=== PATIENT | male | born 1950 | race Caucasian/White ===

== ENCOUNTER 2016-12-17 15:16 | Inpatient (IN) | payer OTHER ==
[2016-12-17] VITALS (8 sets, daily range): BP systolic 96–144; BP diastolic 59–99; PULSE 67–78; RESP 15–22; Ht 182.9 cm; Wt 106.7 kg
[~2016-12-17] VITALS: Ht 182.9 cm; Wt 106.7 kg
[2016-12-17] MEDS ORDERED: morphine 4 MG/ML VIAL IV STA (15:27)
[2016-12-17] MEDS ORDERED: ONDANSETRON 4 MG INJ ONE (15:28)
[2016-12-17] MEDS ORDERED: morphine 4 MG/ML VIAL ONE (15:28)
--- NOTE | 2016-12-17 15:30 | ERA ---
ER Documentation Chief Complaint Date/Time DATE: 12/17/16 TIME: 15:30 Chief Complaint bibr 39 co cp with ekg showing stemi in the field 3 nitro 325 asprin given HPI 66-year-old male history of hypertension, hyperlipidemia and coronary artery disease status post PCI in 2007 presents to the ED via rescue ambulance for evaluation of chest pain as a potential STEMI. Patient was in his usual state of health until this morning while taking a shower expense acute onset of severe , sharp and pressure-like, left-sided chest pain which radiated down his left arm. Symptoms accompanied by nausea, vomiting, diaphoresis and shortness. Mild relief from aspirin and nitroglycerin 3 given by paramedics. On arrival continues to complain of severe pain which he quantifies as 7/10. No palpitations. Denies abdominal pain or low back pain. No leg pain or swelling. No relieving or exacerbating factors. Reports pain is similar to prior to his previous PCI. ROS All systems reviewed and are negative except as per history of present illness. Medications Home Meds Active Scripts Magnesium Hydroxide* ([place]' MOM*) 30 Ml Susp, 30 ML PO DAILY Y for CONSTIPATION, #1 BOTTLE Prov:STEFAN GARCIA S. 12/18/16 Famotidine* (Famotidine*) 20 Mg Tablet, 20 MG PO DAILY, #30 TAB 2 Refills Prov:STEFAN GARCIA S. 12/18/16 Aspirin (Aspirin) 81 Mg Chew, 81 MG PO DAILY, #30 TAB 4 Refills Prov:STEFAN GARCIA S. 12/18/16 Nitroglycerin* (Nitrostat*) 0.4 Mg Tab.subl, 1 TAB SL Q5M Y for ANGINA, #14 Prov:STEFAN GARCIA S. 12/18/16 Lisinopril* (Lisinopril*) 5 Mg Tablet, 2.5 MG PO DAILY, #30 TAB 3 Refills Prov:STEFAN GARCIA S. 12/18/16 Carvedilol* (Carvedilol*) 6.25 Mg Tablet, 6.25 MG PO BID, #60 TAB 4 Refills Prov:STEFAN GARCIA S. 12/18/16 Atorvastatin* (Atorvastatin*) 80 Mg Tablet, 80 MG PO DAILY@21, #30 TAB 4 Refills Prov:STEFAN GARCIA. 12/18/16 Clopidogrel Bisulfate (Clopidogrel) 75 Mg Tablet, 75 MG PO DAILY, #30 TAB 8 Refills Prov:STEFAN GARCIA S. 12/18/16 Reported Medications Fenofibrate, Micronized* (Fenofibrate*) 160 Mg Tablet, 160 MG PO DAILY, TAB 12/17/16 Discontinued Reported Medications Metoprolol Tartrate* (Lopressor*) 25 Mg Tab, 25 MG PO DAILY, #60 TAB 12/17/16 Atorvastatin* (Atorvastatin*) 40 Mg Tablet, 40 MG PO DAILY, #30 TAB 12/17/16 Allergies Allergies: Coded Allergies: atenolol (Unverified Allergy, Unknown, 12/17/16) bupropion (Unverified Allergy, Unknown, 12/17/16) gemfibrozil (Unverified Allergy, Unknown, 12/17/16) hydrochlorothiazide (Unverified Allergy, Unknown, 12/17/16) lovastatin (Unverified Allergy, Unknown, 12/17/16) niacin (Unverified Allergy, Unknown, 12/17/16) PMhx/Soc Reviewed in chart. As per HPI. History of Surgery: No Anesthesia Reaction: No Hx Neurological Disorder: No Hx Respiratory Disorders: No Hx Cardiac Disorders: Yes (stents) Hx Psychiatric Problems: No Hx Miscellaneous Medical Probl: No Smoking Status: Unknown if ever smoked FmHx No early coronary artery disease, diabetes or stroke. Physical Exam Vitals Vital Signs Date Time Temp Pulse Resp B/P Pulse Ox O2 Delivery O2 Flow Rate FiO2 12/17/16 17:30 Nasal Cannula 2.0 12/17/16 17:10 96.0 78 15 128/92 99 Nasal Cannula 2.0 12/17/16 17:00 72 12/17/16 16:00 78 18 140/96 99 Nasal Cannula 2.0 12/17/16 15:48 79 18 115/89 99 Nasal Cannula 2.0 12/17/16 15:40 78 18 121/87 99 Nasal Cannula 2.0 12/17/16 15:16 98.7 79 18 122/91 100 12/17/16 15:16 Nasal Cannula 2 Physical Exam Const: Alert, severe distress. Head: Atraumatic Eyes: Normal Conjunctiva ENT: Normal External Ears, Nose and Mouth. Neck: Full range of motion.. No chest wall tenderness. No JVD. Resp: Clear to auscultation bilaterally Cardio: Regular rate and rhythm, no murmurs Abd: Soft, non tender, non distended. Normal bowel sounds. No masses or abnormal pulsations. Skin: No petechiae or rashes. Diaphoretic Back: No midline or flank tenderness Ext: No cyanosis, or edema. Pulses 4+ in all extremities. Neur: Awake and alert. No focal deficit observed. Psych: Cooperative, anxious. Result Diagram: 12/18/1643112/18/162 Results 24 hrs Laboratory Tests Test 12/17/16 15:20 White Blood Count 14.910^3/ul Red Blood Count 5.3210^6/ul Hemoglobin 15.3g/dl Hematocrit 44.6% Mean Corpuscular Volume 83.8fl Mean Corpuscular Hemoglobin 28.8pg Mean Corpuscular Hemoglobin Concent 34.3g/dl Red Cell Distribution Width 13.3% Platelet Count 81479^3/UL Mean Platelet Volume 9.6fl Neutrophils % 67.8% Lymphocytes % 21.3% Monocytes % 9.6% Eosinophils % 0.5% Basophils % 0.2% Nucleated Red Blood Cells % 0.0/100WBC Neutrophils # 10.110^3/ul Lymphocytes # 3.210^3/ul Monocytes # 1.410^3/ul Eosinophils # 0.110^3/ul Basophils # 0.010^3/ul Nucleated Red Blood Cells # 0.010^3/ul Prothrombin Time 12.1Sec Prothrombin Time Ratio 0.9 INR International Normalized Ratio 0.90 Activated Partial Thromboplast Time 26.1Sec Sodium Level 147mmol/L Potassium Level 3.5mmol/L Chloride Level 112mmol/L Carbon Dioxide Level 20mmol/L Anion Gap 19 Blood Urea Nitrogen 19mg/dl Creatinine 1.79mg/dl Glucose Level 115mg/dl Calcium Level 10.6mg/dl Total Bilirubin 0.6mg/dl Direct Bilirubin 0.00mg/dl Indirect Bilirubin 0.6mg/dl Aspartate Amino Transf (AST/SGOT) 22IU/L Alanine Aminotransferase (ALT/SGPT) 44IU/L Alkaline Phosphatase 82IU/L Troponin I < 0.012ng/ml Total Protein 8.0g/dl Albumin 5.0g/dl Globulin 3.00g/dl Albumin/Globulin Ratio 1.66 Current Medications Medications (Trade) Dose Ordered Sig/Berna Route PRN Reason Start Time Stop Time Status Last Admin Dose Admin Morphine Sulfate 4 mg 4 mg ONCE STAT IV 12/17/16 15:27 12/17/16 15:28 DC 12/17/16 15:38 Nitroglycerin/ Dextrose (Nitroglycerin 50 Mg/D5W (Pmx)) 250 ml @ 6 mls/hr ONCE STAT IV 12/17/16 15:36 12/17/16 18:39 DC 12/17/16 15:36 Clopidogrel Bisulfate (plaVIX) 600 mg ONCE STAT PO 12/17/16 15:36 12/17/16 15:38 DC 12/17/16 15:46 Heparin Sodium (Porcine) (Heparin (1000 Units/ml)) 5,000 unit ONCE STAT IV 12/17/16 15:36 12/17/16 15:38 DC 12/17/16 15:45 Fentanyl (Sublimaze) 25 mcg ONCE ONCE IV 12/17/16 16:00 12/17/16 16:01 DC 12/17/16 16:04 Fentanyl (Sublimaze) 100 mcg STK-MED ONCE .ROUTE 12/17/16 16:01 12/17/16 16:02 DC Heparin Sodium (Porcine) (Heparin (1000 Units/ml)) 10,000 unit STK-MED ONCE .ROUTE 12/17/16 16:09 12/17/16 16:10 DC Lidocaine (Xylocaine 1% (Mdv) 20 ml) 20 ml STK-MED ONCE .ROUTE 12/17/16 16:09 12/17/16 16:10 DC Iodixanol 100 ml 100 ml STK-MED ONCE .ROUTE 12/17/16 16:09 12/17/16 16:10 DC Heparin Sodium/ Sodium Chloride (Heparin 1000 Units/NS (A-Line)) 1,500 ml @ ud STK-MED ONCE .ROUTE 12/17/16 16:09 12/17/16 16:10 DC Verapamil HCl (Verapamil) 5 mg STK-MED ONCE .ROUTE 12/17/16 16:09 12/17/16 16:10 DC Nitroglycerin (Nitroglycerin (Intracoronary)) 1,000 mcg STK-MED ONCE .ROUTE 12/17/16 16:09 12/17/16 16:10 DC Fentanyl (Sublimaze) 100 mcg STK-MED ONCE .ROUTE 12/17/16 16:19 12/17/16 16:20 DC Midazolam HCl (Versed) 2 mg STK-MED ONCE .ROUTE 12/17/16 16:19 12/17/16 16:20 DC EKG:#1: Time: 15:18. Sinus rhythm with sinus arrhythmia. Ventricular rate 85. Right bundle branch block. nonspecific ST segment elevation with ST depression in leads V3. Normal TX and QRS. EP interpretation: Abnormal ECG. EKG:#2: Time: 15:24. Sinus rhythm. Ventricular rate 82. Right bundle branch block. ST segment elevations in V2 and V3. No ectopy. Normal TX and QRS. EP interpretation: Abnormal ECG. IMAGING: Chest AP portable cardiac silhouette is normal. Costophrenic angles are clear. Aortic atherosclerosis. No effusions or infiltrates. No pneumothorax. EP interpretation: No acute disease. Procedures/MDM DOCUMENTS REVIEWED: ED nurse, no prior records available. MEDICAL DECISION MAKIN-year-old male history of hypertension, hyperlipidemia and coronary artery disease status post PCI in 2007 presents to the ED via rescue ambulance for evaluation of chest pain as a potential STEMI. Initial troponin was negative. Initial EKG revealed right bundle branch block and second EKG showed dynamic changes consistent with acute ischemia. Severe ongoing pain despite intravenous nitroglycerin requiring multiple dose of opiates. No radiographic evidence of pneumonia, pneumothorax or congestive heart failure. Pulmonary embolism and aortic dissection were considered but unlikely. Heparin and bolus and clopidogrel loading dose given. Patient with ongoing severe chest pain and dynamic EKG changes will require emergent PCI and is transferred to the cardiac catheterization lab. CRITICAL CARE TIME: Due to the high probability of sudden clinically significant cardiovascular, hemodynamic and respiratory deterioration, this patient with acute chest pain secondary to acute coronary syndrome who required emergent PCI, required multiple, frequent reevaluations of vital signs and response to therapy. Additional critical care time was spent in obtaining supplemental history from EMS and , interpretation of relevant clinical data including multiple EKG's, labs and x-ray, consultation with [facility], cardiology, Dr Paniagua and arranging for ongoing care and admission with Dr. Persaud. TOTAL CRITICAL CARE TIME: 35 minutes not including other separately reportable procedures. Counseled patient and family regarding diagnosis, diagnostic results and plan for admission. CALLS/CONSULTS: Time 15:20, Dr. Lozoya, Recommends repeat EKG. At 15: 30 after repeat EKG recommends emergent PCI. CALLS/CONSULTS: Time 15:40, Dr Appiah, [facility], agrees patient is unstable for transfer. Case #[id number]. PATIENT CARE TRANSITIONED: Time: 16:35, Dr. Persaud. Departure Diagnosis: Primary Impression: Chest pain Qualified Code: R07.9 - Chest pain, unspecified type Additional Impressions: STEMI (ST elevation myocardial infarction) Qualified Code: I21.02 - ST elevation myocardial infarction involving left anterior descending (LAD) coronary artery Acute coronary syndrome Hypertension Qualified Code: I10 - Hypertension, unspecified type Condition: Critical CRISTIN TENA MD Dec 17, 2016 15:30
[2016-12-17 15:36] LABS: BASOPHILS % 0.2 % (0.0-2.0); EOSINOPHILS # 0.1 10^3/ul (0.0-0.5); EOSINOPHILS % 0.5 % (0.0-7.0); HEMATOCRIT 44.6 % (42.0-52.0); HEMOGLOBIN 15.3 g/dl (14.0-18.0); LYMPHOCYTES # 3.2 10^3/ul (0.8-2.9); LYMPHOCYTES % 21.3 % (15.0-51.0); MEAN CORPUSCULAR HEMOGLOBIN 28.8 pg (29.0-33.0); MEAN CORPUSCULAR HGB CONC 34.3 g/dl (32.0-37.0); MEAN CORPUSCULAR VOLUME 83.8 fl (82.0-101.0); MEAN PLATELET VOLUME 9.6 fl (7.4-10.4); MONOCYTE # 1.4 10^3/ul (0.3-0.9); MONOCYTES % 9.6 % (0.0-11.0); NEUTROPHIL # 10.1 10^3/ul (1.6-7.5); NEUTROPHILS % 67.8 % (39.0-77.0); PLATELET COUNT 262 10^3/UL (140-415); RED BLOOD COUNT 5.32 10^6/ul (4.70-6.10); RED CELL DISTRIBUTION WIDTH 13.3 % (11.5-14.5); WHITE BLOOD COUNT 14.9 10^3/ul (4.8-10.8)
[2016-12-17] MEDS ORDERED: HEPARIN 1000 UNITS/ML 10 ML INJ IV STA (15:36)
[2016-12-17] MEDS ORDERED: CLOPIDOGREL 300 MG TAB PO STA (15:36)
[2016-12-17] MEDS ORDERED: NITROGLYCERIN 50 MG/D5W (PMX) 250 ML IV STA (15:36)
[2016-12-17] MEDS ORDERED: ATOR40TA68 PO (15:44)
[2016-12-17 15:45] LABS: INR 0.9; PROTIME 12.1 Sec (12.2-14.2); PT RATIO 0.9
[2016-12-17] MEDS ORDERED: FENO160T13 PO (15:45)
[2016-12-17] MEDS ORDERED: METO-448 PO (15:45)
[2016-12-17 15:46] LABS: PARTIAL THROMBOPLASTIN TIME 26.1 Sec (25.0-35.0)
[2016-12-17 15:48] LABS: ALANINE AMINOTRANSFERASE 44 IU/L (13-69); ALBUMIN/GLOBULIN RATIO 1.66; ALKALINE PHOSPHATASE 82 IU/L (42-121); ANION GAP 19 (8-16); ASPARTATE AMINO TRANSFERASE 22 IU/L (15-46); BILIRUBIN,INDIRECT 0.6 mg/dl (0-1.1); BILIRUBIN,TOTAL 0.6 mg/dl (0.2-1.3); BLOOD UREA NITROGEN 19 mg/dl (7-20); CALCIUM 10.6 mg/dl (8.4-10.2); CARBON DIOXIDE 20 mmol/L (21-31); CHLORIDE 112 mmol/L (97-110); CREATININE 1.79 mg/dl (0.61-1.24); GLUCOSE 115 mg/dl (70-220); POTASSIUM 3.5 mmol/L (3.5-5.1); SODIUM 147 mmol/L (135-144)
--- NOTE | 2016-12-17 15:50 | RADRPT ---
PROCEDURE: XR Chest. CLINICAL INDICATION: Chest pain TECHNIQUE: Single frontal view of the chest was obtained. COMPARISON: None FINDINGS: The heart is within normal limits. The thoracic aorta is calcified. There are mild bibasilar atelectatic changes. There is no pleural effusion or pneumothorax. RPTAT: AA IMPRESSION: Mild bibasilar atelectatic changes, left greater than right. Calcified aorta consistent with atherosclerotic disease. .Isiah Sheppard MD, MD Date Time Electronically viewed and signed by .Isiah Sheppard MD, on 12/17/2016 15:49 .S/
[2016-12-17] MEDS ORDERED: FENTAnyl 50 MCG/ML VIAL IV ONE (16:00)
[2016-12-17] MEDS ORDERED: FENTAnyl 50 MCG/ML VIAL ONE ×2 (16:01→16:19)
[2016-12-17] MEDS ORDERED: NITROGLYCERIN (IC) 100 MCG/ML INJ ONE (16:09)
[2016-12-17] MEDS ORDERED: LIDOCAINE 1% (MDV) 20 ML INJ ONE (16:09)
[2016-12-17] MEDS ORDERED: IODIXANOL LOCM 100 ML BTL ONE (16:09)
[2016-12-17] MEDS ORDERED: HEPARIN 1000 UNITS/ML 10 ML INJ ONE (16:09)
[2016-12-17] MEDS ORDERED: VERAPAMIL 5 MG INJ ONE (16:09)
[2016-12-17 16:14] LABS: TROPONIN-I < 0.012 ng/ml (0.00-0.12)
[2016-12-17] MEDS ORDERED: MIDAZOLAM 1 MG/ML 2 ML INJ ONE (16:19)
--- NOTE | 2016-12-17 17:44 | RADRPT ---
PROCEDURE: XR Chest. CLINICAL INDICATION: Chest pain TECHNIQUE: Single frontal view of the chest was obtained COMPARISON: CHEST 12/17/2016 FINDINGS: There is mild enlargement of the cardiac silhouette. The thoracic aorta is calcified. There are mild bibasilar linear atelectatic changes, unchanged. There is no pleural effusion or pneumothorax. RPTAT: AA IMPRESSION: Mild enlargement of the cardiac silhouette compared to the prior study, which may be projectional. F ollow-up is recommended. Calcified aorta consistent with atherosclerotic disease. .Isiah Sheppard MD, MD Date Time Electronically viewed and signed by .Isiah Sheppard MD, on 12/17/2016 17:44 .S/
[2016-12-17] MEDS ORDERED: SOD CHLORIDE 0.9% 1,000 ML IV SCH ×2 (18:00→19:30)
[2016-12-17] MEDS ORDERED: ALBUTEROL/IPRATROPIUM (NEB) 3 ML AMP HHN PRN (19:00)
[2016-12-17] MEDS ORDERED: HYDROCODONE/APAP (5/325) TAB PO PRN (19:00)
[2016-12-17] MEDS ORDERED: morphine 2 MG INJ IV PRN (19:00)
[2016-12-17] MEDS ORDERED: ACETAMINOPHEN 325 MG TAB PO PRN (19:00)
[2016-12-17] MEDS ORDERED: MAGNESIUM HYDROXIDE 30ML CUP PO PRN (19:00)
[2016-12-17] MEDS ORDERED: LORAZEPAM 2 MG INJ IV PRN (19:00)
[2016-12-17] MEDS ORDERED: DOCUSATE SODIUM 100 MG CAP PO PRN (19:00)
[2016-12-17] MEDS ORDERED: hydrALAzine 20 MG INJ IV PRN (19:00)
[2016-12-17] MEDS ORDERED: NACL 0.9% 3 ML SYG IV SCH (19:00)
[2016-12-17] MEDS ORDERED: NITROGLYCERIN (SL) 0.4 MG TAB SL PRN (19:00)
[2016-12-17] MEDS ORDERED: NA PHOSPHATE/BIPHOS 133 ML ENEMA PR PRN (19:00)
[2016-12-17] MEDS ORDERED: ONDANSETRON 4 MG INJ IV PRN (19:00)
--- NOTE | 2016-12-17 19:08 | CONS ---
Date/Time of Note Date/Time of Note DATE: 12/17/16 TIME: 19:02 Assessment/Plan Assessment/Plan Problems: (1) STEMI (ST elevation myocardial infarction) (2) Acute coronary syndrome Status: Acute Additional Assessment/Plan STEMI Acute Stent thrombosis ( Very Late) ICMP ( LVEF 30%.) s/p complex PCI of mid LAD stent thrombosis with 3.5x38mm MAYA synergey. ASA, Plavix Coreg, Lisinonpril Statin Likely stunned myocardium. Dr Buchanan was consulted for CKD ( ASHLEY) Cr 1.7 for hydration help in setting of ICMP LVEF 30% on LV gram 2D echo. If stable pt can be d/c home tomorrow. Consultation Date/Type/Reason Admit Date/Time Dec 17, 2016 at 17:41 Date of Consultation: Dec 17, 2016 Type of Consultation: Interventional Cardiology Reason for Consultation STEMI Hx of Present Illness Pt is 66 year o,d m Cmae in with acute on set of Cp. EKG RBBB with ST T changes , no meeting criteri on fist EKG but second EKG has dynamic changes with on going CP. taken urgent for cath with STEMI. Constitutional: diaphoresis Past Medical History Medical History: coronary artery disease Social History Smoking Status: Current every day smoker Exam/Review of Systems Vital Signs Vitals Vital Signs Date Time Temp Pulse Resp B/P Pulse Ox O2 Delivery O2 Flow Rate FiO2 12/17/16 18:00 68 15 134/86 99 Nasal Cannula 2.0 12/17/16 17:10 96.0 Exam Constitutional: alert, oriented Head: normocephalic Eyes: nl conjunctiva ENMT: nl external ears & nose Neck: non-tender, supple Respiratory: clear to auscultation Cardiovascular: regular rate and rhythm Gastrointestinal: nl liver, spleen, soft Results Result Diagram: 12/17/16 1520 12/17/16 1520 Results 24 hrs Laboratory Tests Test 12/17/16 15:20 White Blood Count 14.9 H Red Blood Count 5.32 Hemoglobin 15.3 Hematocrit 44.6 Mean Corpuscular Volume 83.8 Mean Corpuscular Hemoglobin 28.8 L Mean Corpuscular Hemoglobin Concent 34.3 Red Cell Distribution Width 13.3 Platelet Count 262 Mean Platelet Volume 9.6 Neutrophils % 67.8 Lymphocytes % 21.3 Monocytes % 9.6 Eosinophils % 0.5 Basophils % 0.2 Nucleated Red Blood Cells % 0.0 Neutrophils # 10.1 H Lymphocytes # 3.2 H Monocytes # 1.4 H Eosinophils # 0.1 Basophils # 0.0 Nucleated Red Blood Cells # 0.0 Prothrombin Time 12.1 L Prothrombin Time Ratio 0.9 INR International Normalized Ratio 0.90 Activated Partial Thromboplast Time 26.1 Sodium Level 147 H Potassium Level 3.5 Chloride Level 112 H Carbon Dioxide Level 20 L Anion Gap 19 H Blood Urea Nitrogen 19 Creatinine 1.79 H Glucose Level 115 Calcium Level 10.6 H Total Bilirubin 0.6 Direct Bilirubin 0.00 Indirect Bilirubin 0.6 Aspartate Amino Transf (AST/SGOT) 22 Alanine Aminotransferase (ALT/SGPT) 44 Alkaline Phosphatase 82 Troponin I < 0.012 Total Protein 8.0 Albumin 5.0 H Globulin 3.00 Albumin/Globulin Ratio 1.66 Medications Medications Current Medications Sodium Chloride (NS) 1,000 ml @ 75 mls/hr [id number] IV Last administered on t 18:01; Admin Dose 75 MLS/HR; Start 12/17/16 at 18:00; Stop 12/18/16 at 06:00 Ondansetron HCl (Zofran Inj) 4 mg Q6H PRN IV NAUSEA AND/OR VOMITING; Start at 19:00 Acetaminophen (Tylenol Tab) 650 mg Q6H PRN PO PAIN LEVEL 1-3 OR FEVER; Start 12/17/16 at 19:00 Acetaminophen/ Hydrocodone Bitart ([place] (5/325)) 1 tab Q6H PRN PO MODERATE PAIN LEVEL 4-6; Start 12/17/16 at 19:00 Morphine Sulfate (morphine) 2 mg Q4H PRN IV SEVERE PAIN LEVEL 7-10; Start at 19:00 Docusate Sodium (Colace) 100 mg Q12H PRN PO CONSTIPATION; Start 12/17/16 at 19 :00 Magnesium Hydroxide (Milk Of Mag) 30 ml DAILY PRN PO CONSTIPATION; Start 12/17 at 19:00 Sodium Biphosphate/ Sodium Phosphate (Fleet Enema) 133 ml DAILY PRN [place] CONSTIPATION; Start 12/17/16 at 19:00 Famotidine (Pepcid) 20 mg DAILY PO ; Start 12/17/16 at 19:00 Lorazepam (Ativan) 0.5 mg Q6H PRN IV ANXIETY; Start 12/17/16 at 19:00 Hydralazine HCl (Apresoline) 10 mg Q6H PRN IV SBP GREATER THAN 180; Start at 19:00 Nitroglycerin (Nitroglycerin (Sl Tab) 0.4 Mg) 1 tab Q5M PRN SL ANGINA; Start 12/17/16 at 19:00 ABI MORGAN MD Dec 17, 2016 19:08
[2016-12-17] MEDS: FAMOTIDINE 20 MG TAB PO SCH (20:08)
[2016-12-17] MEDS: LISINOPRIL 5 MG TAB PO SCH (20:08)
--- NOTE | 2016-12-17 20:41 | HP ---
DATE OF ADMISSION: 12/17/2016 CHIEF COMPLAINT: Chest pain. HISTORY OF PRESENT ILLNESS: A 66-year-old male with prior history of VA with stent placement in 2007, coronary artery disease, high cholesterol, hypertension, who presented with chest pain. Symptoms began early this morning when he was taking a shower. He felt some substernal chest pain, pressure like, left- sided chest pain radiating down his left arm. He had some nausea symptoms as well, some sweating, some shortness of breath, and coughing, nonproductive. He took nitroglycerin at home, which did not relieve the symptoms. He told his to call 911. He received, he says, 4 aspirin as well and nitroglycerin, which did not relieve his symptoms. On arrival, he was still having severe chest pain, but denies any diarrhea or constipation. No headaches or loss of consciousness. No vision changes. No abdominal pain. No arthralgias or myalgias. When he arrived, he was found with ST-elevation VA and was taken to the slab tripper where he had findings based on what nursing staff said of LAD occlusion and had angioplasty and stent replacement. PAST MEDICAL HISTORY: As above. ALLERGIES: ATENOLOL, BUPROPION, GEMFIBROZIL, HYDROCHLOROTHIAZIDE, LOVASTATIN, AND NIACIN. HOME MEDICATIONS: Atorvastatin 40 mg daily, Fenofibrate 160 mg daily, Lopressor 25 mg daily. PAST SURGICAL HISTORY: He had an appendectomy in the past. SOCIAL HISTORY: He smokes half pack of cigarettes a day and has for many years apparently. FAMILY HISTORY: His mother has hypertension and diabetes. PHYSICAL EXAMINATION: VITAL SIGNS: T-max 98.7, pulse of 79, respirations 18, blood pressure 115 to 140 systolic over 89 to 96 diastolic, sating at 99 percent 2 L nasal cannula. GENERAL: Patient lying in bed, answers question appropriately, in no acute distress. HEENT: Pupils equal, round, and react to light. Extraocular muscles intact. NECK: Supple. No thyromegaly. LUNGS: Clear to auscultation bilaterally. CARDIOVASCULAR: S1, S2 heard. No rubs or gallops. ABDOMEN: Soft, nontender, nondistended. Normal bowel sounds. No rebound or guarding. MUSCULOSKELETAL: No lower extremity edema bilaterally. NEUROLOGIC: No focal deficits. LABORATORY: WBC 14.9, hemoglobin 15.3, hematocrit 44.6, platelets 262. Sodium 147, potassium 3.5, chloride 112, CO2 20, BUN 19, creatinine 1.79, glucose of 115. LFTs are normal. Troponin is actually negative times 1. ASSESSMENT AND PLAN: A 66-year-old male coming in with chest pain, with findings of ST-elevation myocardial infarction, status post left heart catheterization with left anterior descending stenosis. Left anterior descending blockage found, status post angioplasty and PCI. 1. ST-elevation myocardial infarction and chest pain. Will admit patient to ICU. Follow up cardiology recommendations. Continue to monitor post catheterization including sheath and continue current medications including H2 dinora, nitroglycerin p.r.n. The patient received Plavix earlier. 2. History of hypertension. Again, continue hydralazine p.r.n. and Monitor blood pressure very carefully. 3. High cholesterol. Follow up lipid panel. The patient has had allergies to statin, gemfibrozil, and niacin, so continue to monitor for now. 4. History of prior myocardial infarction. See number 1. 5. Gastrointestinal prophylaxis. H2 dinora. 6. Deep vein thrombosis prophylaxis. Again, patient received Plavix and received aspirin. Dictated By: Charbel Pimentel MD /kirsten/bjc /Document#: [id number]
[2016-12-17] MEDS ORDERED: HEPARIN 5,000 UNIT/0.5 ML VIAL SC SCH (21:00)
[2016-12-17] MEDS ORDERED: ATORVASTATIN 80 MG TAB PO SCH (21:00)
[2016-12-17 22:10] LABS: CK-MB 48.1 ng/ml (0.0-2.4)
[2016-12-17 22:12] LABS: TROPONIN-I 14.8 ng/ml (0.00-0.12)
[2016-12-18] VITALS (19 sets, daily range): BP systolic 93–135; BP diastolic 56–98; PULSE 61–78; RESP 12–23
[2016-12-18 04:45] LABS: BASOPHILS % 0.1 % (0.0-2.0); EOSINOPHILS % 0.2 % (0.0-7.0); HEMATOCRIT 38.6 % (42.0-52.0); HEMOGLOBIN 12.6 g/dl (14.0-18.0); LYMPHOCYTES # 1.5 10^3/ul (0.8-2.9); LYMPHOCYTES % 10.3 % (15.0-51.0); MEAN CORPUSCULAR HEMOGLOBIN 28.2 pg (29.0-33.0); MEAN CORPUSCULAR HGB CONC 32.6 g/dl (32.0-37.0); MEAN CORPUSCULAR VOLUME 86.4 fl (82.0-101.0); MEAN PLATELET VOLUME 9.9 fl (7.4-10.4); MONOCYTE # 1.4 10^3/ul (0.3-0.9); MONOCYTES % 9.7 % (0.0-11.0); NEUTROPHIL # 11.3 10^3/ul (1.6-7.5); NEUTROPHILS % 79.2 % (39.0-77.0); PLATELET COUNT 200 10^3/UL (140-415); RED BLOOD COUNT 4.47 10^6/ul (4.70-6.10); RED CELL DISTRIBUTION WIDTH 13.7 % (11.5-14.5); WHITE BLOOD COUNT 14.3 10^3/ul (4.8-10.8)
[2016-12-18 05:13] LABS: PHOSPHORUS 4.2 mg/dl (2.5-4.9)
[2016-12-18 05:17] LABS: CALCIUM 9.4 mg/dl (8.4-10.2); CREATININE 1.02 mg/dl (0.61-1.24); MAGNESIUM 1.6 mg/dl (1.7-2.5); POTASSIUM 4.4 mmol/L (3.5-5.1)
[2016-12-18 07:44] LABS: THYROID STIMULATING HORMONE 0.68 MIU/L (0.465-4.680)
[2016-12-18] MEDS: FAMOTIDINE 20 MG TAB PO SCH (08:16)
[2016-12-18] MEDS: LISINOPRIL 5 MG TAB PO SCH (08:17)
--- NOTE | 2016-12-18 08:24 | PN ---
Date/Time of Note Date/Time of Note DATE: 12/18/16 TIME: 08:21 Assessment/Plan VTE Prophylaxis VTE Prophylaxis Intervention: SCD's Lines/Catheters IV [facility]ter [facility] (from [facility] Peripheral IV Urinary Cath still in place: No Assessment/Plan Chief Complaint/Hosp Course ASSESSMENT AND PLAN: 66-year-old male coming in with chest pain, with findings of ST-elevation myocardial infarction, status post left heart catheterization with left anterior descending stenosis. Left anterior descending blockage found, status post angioplasty and PCI. 1. ST-elevation myocardial infarction and chest pain. -Follow up cardiology recommendations. - continue current medications including H2 dinora, beta-dinora, Plavix, nitroglycerin p.r.n. 2. History of hypertension. Again, continue hydralazine p.r.n. and other current cardiac meds, and Monitor blood pressure very carefully. 3. High cholesterol. Follow up lipid panel. The patient has had allergies to statin, gemfibrozil, and niacin, so continue to monitor for now, presently on atorvastatin 4. History of prior myocardial infarction. See number 1. 5. Gastrointestinal prophylaxis. H2 dinora. 6. Deep vein thrombosis prophylaxis. Again, patient received Plavix and received aspirin. Critical care time spent on patient care today equals 45 minutes. Problems: Subjective 24 Hr Interval Summary Free Text/Dictation Patient has some chest pain yesterday, relieved with nitro and morphine, no present chest pain otherwise no acute events overnight. Tolerating diet. Exam/Review of Systems Vital Signs Vitals Vital Signs Date Time Temp Pulse Resp B/P Pulse Ox O2 Delivery O2 Flow Rate FiO2 12/18/16 08:00 98.1 65 19 120/81 93 Nasal Cannula 2.0 Intake and Output 12/17/16 12/17/16 12/18/16 15:00 23:00 07:00 Intake Total 935 ml 525 ml Output Total 355 ml 325 ml Balance 580 ml 200 ml Exam GENERAL: Patient lying in bed, answers question appropriately, in no acute distress. HEENT: Pupils equal, round, and react to light. Extraocular muscles intact. NECK: Supple. No thyromegaly. LUNGS: Clear to auscultation bilaterally. CARDIOVASCULAR: S1, S2 heard. No rubs or gallops. ABDOMEN: Soft, nontender, nondistended. Normal bowel sounds. No rebound or guarding. MUSCULOSKELETAL: No lower extremity edema bilaterally. NEUROLOGIC: No focal deficits. Results Result Diagram: 12/18/16 0432 12/18/16 0432 Results 24 hrs Laboratory Tests Test 12/17/16 15:20 12/17/16 21:00 12/18/16 04:32 White Blood Count 14.9 H 14.3 H Red Blood Count 5.32 4.47 L Hemoglobin 15.3 12.6 L Hematocrit 44.6 38.6 L Mean Corpuscular Volume 83.8 86.4 Mean Corpuscular Hemoglobin 28.8 L 28.2 L Mean Corpuscular Hemoglobin Concent 34.3 32.6 Red Cell Distribution Width 13.3 13.7 Platelet Count 262 200 # Mean Platelet Volume 9.6 9.9 Neutrophils % 67.8 79.2 H Lymphocytes % 21.3 10.3 L Monocytes % 9.6 9.7 Eosinophils % 0.5 0.2 Basophils % 0.2 0.1 Nucleated Red Blood Cells % 0.0 0.0 Neutrophils # 10.1 H 11.3 H Lymphocytes # 3.2 H 1.5 Monocytes # 1.4 H 1.4 H Eosinophils # 0.1 0.0 Basophils # 0.0 0.0 Nucleated Red Blood Cells # 0.0 0.0 Prothrombin Time 12.1 L Prothrombin Time Ratio 0.9 INR International Normalized Ratio 0.90 Activated Partial Thromboplast Time 26.1 Sodium Level 147 H 142 Potassium Level 3.5 4.4 Chloride Level 112 H 111 H Carbon Dioxide Level 20 L 22 Anion Gap 19 H 13 Blood Urea Nitrogen 19 19 Creatinine 1.79 H 1.02 Glucose Level 115 104 Calcium Level 10.6 H 9.4 Total Bilirubin 0.6 Direct Bilirubin 0.00 Indirect Bilirubin 0.6 Aspartate Amino Transf (AST/SGOT) 22 Alanine Aminotransferase (ALT/SGPT) 44 Alkaline Phosphatase 82 Troponin I < 0.012 14.800 *H Total Protein 8.0 Albumin 5.0 H Globulin 3.00 Albumin/Globulin Ratio 1.66 Creatine Kinase 757 H Creatine Kinase Index 6.4 Creatinine Kinase MB (Mass) 48.10 H Free Thyroxine 0.91 Hemoglobin A1c 5.4 Phosphorus Level 4.2 Magnesium Level 1.6 L Triglycerides Level 223 H Cholesterol Level 131 LDL Cholesterol, Calculated 60 HDL Cholesterol 26 L Cholesterol/HDL Ratio 5.0 Thyroid Stimulating Hormone (TSH) 0.680 Medications Medications Current Medications Ondansetron HCl (Zofran Inj) 4 mg Q6H PRN IV NAUSEA AND/OR VOMITING Last administered on 12/17/16 21:41; Admin Dose 4 MG; Start 12/17/16 at 19:00 Acetaminophen (Tylenol Tab) 650 mg Q6H PRN PO PAIN LEVEL 1-3 OR FEVER; Start 12/17/16 at 19:00 Acetaminophen/ Hydrocodone Bitart ([place] (5/325)) 1 tab Q6H PRN PO MODERATE PAIN LEVEL 4-6 Last administered on 12/17/16 20:27; Admin Dose 1 TAB; Start 12/17/16 at 19:00 Morphine Sulfate (morphine) 2 mg Q4H PRN IV SEVERE PAIN LEVEL 7-10 Last administered on 12/17/16 21:42; Admin Dose 2 MG; Start 12/17/16 at 19:00 Docusate Sodium (Colace) 100 mg Q12H PRN PO CONSTIPATION; Start 12/17/16 at 19 :00 Magnesium Hydroxide (Milk Of Mag) 30 ml DAILY PRN PO CONSTIPATION; Start 12/17 at 19:00 Sodium Biphosphate/ Sodium Phosphate (Fleet Enema) 133 ml DAILY PRN [place] CONSTIPATION; Start 12/17/16 at 19:00 Famotidine (Pepcid) 20 mg DAILY PO Last administered on 12/18/16 08:16; Admin Dose 20 MG; Start 12/17/16 at 19:00 Lorazepam (Ativan) 0.5 mg Q6H PRN IV ANXIETY; Start 12/17/16 at 19:00 Hydralazine HCl (Apresoline) 10 mg Q6H PRN IV SBP GREATER THAN 180; Start at 19:00 Nitroglycerin (Nitroglycerin (Sl Tab) 0.4 Mg) 1 tab Q5M PRN SL ANGINA Last administered on 12/17/16 21:30; Admin Dose 1 TAB; Start 12/17/16 at 19:00 Clopidogrel Bisulfate (plaVIX) 75 mg DAILY PO Last administered on 12/18/16 08:16; Admin Dose 75 MG; Start 12/18/16 at 09:00 Aspirin (Aspirin) 81 mg DAILY PO Last administered on 12/18/16 08:16; Admin Dose 81 MG; Start 12/18/16 at 09:00 Atorvastatin Calcium (Lipitor) 80 mg DAILY@21 PO Last administered on 20:08; Admin Dose 80 MG; Start 12/17/16 at 21:00 Carvedilol (Coreg) 6.25 mg BID PO Last administered on 12/18/16 08:16; Admin Dose 6.25 MG; Start 12/17/16 at 21:00 Lisinopril (Zestril) 2.5 mg DAILY PO Last administered on 12/18/16 08:17; Admin Dose 2.5 MG; Start 12/17/16 at 19:45 STEFAN GARCIA Dec 18, 2016 08:24
[2016-12-18] MEDS ORDERED: MAGNESIUM SULFATE 1 GM/D5W 100 ML IVPB ONE (08:30)
[2016-12-18] MEDS ORDERED: CLOPIDOGREL 75 MG TAB PO SCH (09:00)
[2016-12-18] MEDS ORDERED: ASPIRIN 81 MG TAB PO SCH (09:00)
--- NOTE | 2016-12-18 09:31 | CONS ---
Date/Time of Note Date/Time of Note DATE: 12/18/16 TIME: 09:30 Consult Date/Type/Reason Admit Date/Time Dec 17, 2016 at 17:41 Initial Consult Date 12/17/16 Type of Consultation: Interventional Cardiology Objective Vital Signs Date Time Temp Pulse Resp B/P Pulse Ox O2 Delivery O2 Flow Rate FiO2 12/18/16 09:05 18 110/74 96 Room Air 12/18/16 08:00 2.0 12/18/16 08:00 98.1 65 Intake and Output 12/17/16 12/17/16 12/18/16 15:00 23:00 07:00 Intake Total 935 ml 525 ml Output Total 355 ml 325 ml Balance 580 ml 200 ml Results/Medications Result Diagram: 12/18/16 0432 12/18/16 0432 Results 24 hrs Laboratory Tests Test 12/17/16 15:20 12/17/16 21:00 12/18/16 04:32 White Blood Count 14.9 H 14.3 H Red Blood Count 5.32 4.47 L Hemoglobin 15.3 12.6 L Hematocrit 44.6 38.6 L Mean Corpuscular Volume 83.8 86.4 Mean Corpuscular Hemoglobin 28.8 L 28.2 L Mean Corpuscular Hemoglobin Concent 34.3 32.6 Red Cell Distribution Width 13.3 13.7 Platelet Count 262 200 # Mean Platelet Volume 9.6 9.9 Neutrophils % 67.8 79.2 H Lymphocytes % 21.3 10.3 L Monocytes % 9.6 9.7 Eosinophils % 0.5 0.2 Basophils % 0.2 0.1 Nucleated Red Blood Cells % 0.0 0.0 Neutrophils # 10.1 H 11.3 H Lymphocytes # 3.2 H 1.5 Monocytes # 1.4 H 1.4 H Eosinophils # 0.1 0.0 Basophils # 0.0 0.0 Nucleated Red Blood Cells # 0.0 0.0 Prothrombin Time 12.1 L Prothrombin Time Ratio 0.9 INR International Normalized Ratio 0.90 Activated Partial Thromboplast Time 26.1 Sodium Level 147 H 142 Potassium Level 3.5 4.4 Chloride Level 112 H 111 H Carbon Dioxide Level 20 L 22 Anion Gap 19 H 13 Blood Urea Nitrogen 19 19 Creatinine 1.79 H 1.02 Glucose Level 115 104 Calcium Level 10.6 H 9.4 Total Bilirubin 0.6 Direct Bilirubin 0.00 Indirect Bilirubin 0.6 Aspartate Amino Transf (AST/SGOT) 22 Alanine Aminotransferase (ALT/SGPT) 44 Alkaline Phosphatase 82 Troponin I < 0.012 14.800 *H Total Protein 8.0 Albumin 5.0 H Globulin 3.00 Albumin/Globulin Ratio 1.66 Creatine Kinase 757 H Creatine Kinase Index 6.4 Creatinine Kinase MB (Mass) 48.10 H Free Thyroxine 0.91 Hemoglobin A1c 5.4 Phosphorus Level 4.2 Magnesium Level 1.6 L Triglycerides Level 223 H Cholesterol Level 131 LDL Cholesterol, Calculated 60 HDL Cholesterol 26 L Cholesterol/HDL Ratio 5.0 Thyroid Stimulating Hormone (TSH) 0.680 Medications Current Medications Ondansetron HCl (Zofran Inj) 4 mg Q6H PRN IV NAUSEA AND/OR VOMITING Last administered on 12/17/16 21:41; Admin Dose 4 MG; Start 12/17/16 at 19:00 Acetaminophen (Tylenol Tab) 650 mg Q6H PRN PO PAIN LEVEL 1-3 OR FEVER; Start 12/17/16 at 19:00 Acetaminophen/ Hydrocodone Bitart ([place] (5/325)) 1 tab Q6H PRN PO MODERATE PAIN LEVEL 4-6 Last administered on 12/17/16 20:27; Admin Dose 1 TAB; Start 12/17/16 at 19:00 Morphine Sulfate (morphine) 2 mg Q4H PRN IV SEVERE PAIN LEVEL 7-10 Last administered on 12/17/16 21:42; Admin Dose 2 MG; Start 12/17/16 at 19:00 Docusate Sodium (Colace) 100 mg Q12H PRN PO CONSTIPATION; Start 12/17/16 at 19 :00 Magnesium Hydroxide (Milk Of Mag) 30 ml DAILY PRN PO CONSTIPATION; Start 12/17 at 19:00 Sodium Biphosphate/ Sodium Phosphate (Fleet Enema) 133 ml DAILY PRN [place] CONSTIPATION; Start 12/17/16 at 19:00 Famotidine (Pepcid) 20 mg DAILY PO Last administered on 12/18/16 08:16; Admin Dose 20 MG; Start 12/17/16 at 19:00 Lorazepam (Ativan) 0.5 mg Q6H PRN IV ANXIETY; Start 12/17/16 at 19:00 Hydralazine HCl (Apresoline) 10 mg Q6H PRN IV SBP GREATER THAN 180; Start at 19:00 Nitroglycerin (Nitroglycerin (Sl Tab) 0.4 Mg) 1 tab Q5M PRN SL ANGINA Last administered on 12/17/16 21:30; Admin Dose 1 TAB; Start 12/17/16 at 19:00 Clopidogrel Bisulfate (plaVIX) 75 mg DAILY PO Last administered on 12/18/16 08:16; Admin Dose 75 MG; Start 12/18/16 at 09:00 Aspirin (Aspirin) 81 mg DAILY PO Last administered on 12/18/16 08:16; Admin Dose 81 MG; Start 12/18/16 at 09:00 Atorvastatin Calcium (Lipitor) 80 mg DAILY@21 PO Last administered on 20:08; Admin Dose 80 MG; Start 12/17/16 at 21:00 Carvedilol (Coreg) 6.25 mg BID PO Last administered on 12/18/16 08:16; Admin Dose 6.25 MG; Start 12/17/16 at 21:00 Lisinopril (Zestril) 2.5 mg DAILY PO Last administered on 12/18/16 08:17; Admin Dose 2.5 MG; Start 12/17/16 at 19:45 Assessment/Plan Chief Complaint/Hosp Course Pt is 66 year o,d m Cmae in with acute on set of Cp. EKG RBBB with ST T changes , no meeting criteri on fist EKG but second EKG has dynamic changes with on going CP. taken urgent for cath with STEMI. Problems: (1) Acute coronary syndrome (2) STEMI (ST elevation myocardial infarction) Additional Assessment/Plan Stable post KS Trasnfer out of ICU and d/c home at 6PM in evening Walking, ambulate contineu medical management post KS out pt f/u with [facility] for possible [facility] and ICMP management d/w pt in detail will /fu Cr improved post hydration from 1.7 to 1.0 D/C home today ABI MORGAN MD Dec 18, 2016 09:31
--- NOTE | 2016-12-18 11:00 | CONS ---
Date/Time of Note Date/Time of Note DATE: 12/18/16 TIME: 11:00 Assessment/Plan Assessment/Plan Additional Assessment/Plan 1.acute STEMI 2. acute kidney injury due to Prerenal azotemia + STEMI 3. Mild metaboolic acidosis 4. Hypernatremia due to dehydration/Prerenal azotemia Plan : S/p Cardiac cath with s/p complex PCI of mid LAD stent thrombosis with 3.5x38mm MAYA synergey. Continue iVF NS Pt cr expectinv to improve with IVF hydration BP stable Continue current medicaitons, Ok to resume ACEI/ARB- from renal point of view will follow up Consultation Date/Type/Reason Admit Date/Time Dec 17, 2016 at 17:41 Date of Consultation: Dec 17, 2016 Type of Consultation: NEPHROLOGY Reason for Consultation Acute kidney injury, post contrast exposure from cardiac cath ,Hypernatremia, metabolic acidosis Referring Provider: TRENTON SALGADO MD Hx of Present Illness 66 year o,d m Cmae in with acute on set of Cp. EKG RBBB with ST T changes, no meeting criteri on fist EKG but second EKG has dynamic changes with on going CP. taken urgent for cath with STEMI. He is noted to have hypernatremia, mild metabolic acidosis and Eleevated Cr 1.71. pt is goito have Cardiac cath and contrast exposure, and renal has been consuteld for ASHLEY, Hypernatremia, Metabolic acidosis, and to prevent contrats induced nephropathy. seen in ED on 12/17/2016 Constitutional: diaphoresis Cardiovascular: chest pain Past Medical History Medical History: coronary artery disease, high cholesterol, hypertension Past Surgical History Past Surgical Hx: other (appendectomy ) Family History Significant Family History: no pertinent family hx Social History Alcohol Use: none Smoking Status: Current every day smoker Drug Use: none Exam/Review of Systems Vital Signs Vitals Vital Signs Date Time Temp Pulse Resp B/P Pulse Ox O2 Delivery O2 Flow Rate FiO2 12/18/16 10:00 66 17 103/62 96 Room Air 12/18/16 08:00 2.0 12/18/16 08:00 98.1 Intake and Output 12/17/16 12/17/16 12/18/16 15:00 23:00 07:00 Intake Total 935 ml 525 ml Output Total 355 ml 325 ml Balance 580 ml 200 ml Exam Constitutional: alert Psych: no complaints Head: normocephalic ENMT: nl external ears & nose Neck: non-tender, supple Respiratory: clear to auscultation, diminished breath sounds, normal air movement Cardiovascular: nl pulses, regular rate and rhythm Gastrointestinal: nl liver, spleen, non-tender, soft Musculoskeletal: nl extremities to inspection, nl gait and stance Extremities: normal pulses Neurological: [employer] II-XII intact, nl mental status, nl speech, nl strength Results Result Diagram: 12/18/162 12/18/16 0432 Results 24 hrs Laboratory Tests Test 12/17/16 15:20 12/17/16 21:00 12/18/16 04:32 White Blood Count 14.9 H 14.3 H Red Blood Count 5.32 4.47 L Hemoglobin 15.3 12.6 L Hematocrit 44.6 38.6 L Mean Corpuscular Volume 83.8 86.4 Mean Corpuscular Hemoglobin 28.8 L 28.2 L Mean Corpuscular Hemoglobin Concent 34.3 32.6 Red Cell Distribution Width 13.3 13.7 Platelet Count 262 200 # Mean Platelet Volume 9.6 9.9 Neutrophils % 67.8 79.2 H Lymphocytes % 21.3 10.3 L Monocytes % 9.6 9.7 Eosinophils % 0.5 0.2 Basophils % 0.2 0.1 Nucleated Red Blood Cells % 0.0 0.0 Neutrophils # 10.1 H 11.3 H Lymphocytes # 3.2 H 1.5 Monocytes # 1.4 H 1.4 H Eosinophils # 0.1 0.0 Basophils # 0.0 0.0 Nucleated Red Blood Cells # 0.0 0.0 Prothrombin Time 12.1 L Prothrombin Time Ratio 0.9 INR International Normalized Ratio 0.90 Activated Partial Thromboplast Time 26.1 Sodium Level 147 H 142 Potassium Level 3.5 4.4 Chloride Level 112 H 111 H Carbon Dioxide Level 20 L 22 Anion Gap 19 H 13 Blood Urea Nitrogen 19 19 Creatinine 1.79 H 1.02 Glucose Level 115 104 Calcium Level 10.6 H 9.4 Total Bilirubin 0.6 Direct Bilirubin 0.00 Indirect Bilirubin 0.6 Aspartate Amino Transf (AST/SGOT) 22 Alanine Aminotransferase (ALT/SGPT) 44 Alkaline Phosphatase 82 Troponin I < 0.012 14.800 *H Total Protein 8.0 Albumin 5.0 H Globulin 3.00 Albumin/Globulin Ratio 1.66 Creatine Kinase 757 H Creatine Kinase Index 6.4 Creatinine Kinase MB (Mass) 48.10 H Free Thyroxine 0.91 Hemoglobin A1c 5.4 Phosphorus Level 4.2 Magnesium Level 1.6 L Triglycerides Level 223 H Cholesterol Level 131 LDL Cholesterol, Calculated 60 HDL Cholesterol 26 L Cholesterol/HDL Ratio 5.0 Thyroid Stimulating Hormone (TSH) 0.680 Medications Medications Current Medications Ondansetron HCl (Zofran Inj) 4 mg Q6H PRN IV NAUSEA AND/OR VOMITING Last administered on 12/17/16 21:41; Admin Dose 4 MG; Start 12/17/16 at 19:00 Acetaminophen (Tylenol Tab) 650 mg Q6H PRN PO PAIN LEVEL 1-3 OR FEVER; Start 12/17/16 at 19:00 Acetaminophen/ Hydrocodone Bitart ([place] (5/325)) 1 tab Q6H PRN PO MODERATE PAIN LEVEL 4-6 Last administered on 12/17/16 20:27; Admin Dose 1 TAB; Start 12/17/16 at 19:00 Morphine Sulfate (morphine) 2 mg Q4H PRN IV SEVERE PAIN LEVEL 7-10 Last administered on 12/17/16 21:42; Admin Dose 2 MG; Start 12/17/16 at 19:00 Docusate Sodium (Colace) 100 mg Q12H PRN PO CONSTIPATION; Start 12/17/16 at 19 :00 Magnesium Hydroxide (Milk Of Mag) 30 ml DAILY PRN PO CONSTIPATION; Start 12/17 at 19:00 Sodium Biphosphate/ Sodium Phosphate (Fleet Enema) 133 ml DAILY PRN [place] CONSTIPATION; Start 12/17/16 at 19:00 Famotidine (Pepcid) 20 mg DAILY PO Last administered on 12/18/16 08:16; Admin Dose 20 MG; Start 12/17/16 at 19:00 Lorazepam (Ativan) 0.5 mg Q6H PRN IV ANXIETY; Start 12/17/16 at 19:00 Hydralazine HCl (Apresoline) 10 mg Q6H PRN IV SBP GREATER THAN 180; Start at 19:00 Nitroglycerin (Nitroglycerin (Sl Tab) 0.4 Mg) 1 tab Q5M PRN SL ANGINA Last administered on 12/17/16 21:30; Admin Dose 1 TAB; Start 12/17/16 at 19:00 Clopidogrel Bisulfate (plaVIX) 75 mg DAILY PO Last administered on 12/18/16 08:16; Admin Dose 75 MG; Start 12/18/16 at 09:00 Aspirin (Aspirin) 81 mg DAILY PO Last administered on 12/18/16 08:16; Admin Dose 81 MG; Start 12/18/16 at 09:00 Atorvastatin Calcium (Lipitor) 80 mg DAILY@21 PO Last administered on 20:08; Admin Dose 80 MG; Start 12/17/16 at 21:00 Carvedilol (Coreg) 6.25 mg BID PO Last administered on 12/18/16 08:16; Admin Dose 6.25 MG; Start 12/17/16 at 21:00 Lisinopril (Zestril) 2.5 mg DAILY PO Last administered on 12/18/16 08:17; Admin Dose 2.5 MG; Start 12/17/16 at 19:45 CHRISTIANE MONTELONGO MD Dec 18, 2016 11:00
--- NOTE | 2016-12-18 11:35 | SP ---
DATE OF PROCEDURE: INDICATIONS FOR THE PROCEDURE: Acute ST elevation myocardial infarction. PROCEDURES PERFORMED: 1. Selective right and left coronary angiography. 2. Left ventriculography with left ventricular pressure and left heart catheterization. 3. Intracoronary nitroglycerin. 4. Supervised procedural sedation. 5. Fluoroscopy. 6. Complex acute stenting of mid left anterior descending coronary artery in-stent thrombosis with 3.5 x 38 mm drug-eluting stent. PROCEDURE DETAILS: After informed consent was obtained, the patient was brought to the cardiac cath eterization lab. The patient was prepped and draped in a supine position. The patient presented to ER with midsternal chest pain. EKG with right bundle with dynamic ST-T changes with anterior ST el evation. Patient has been talked about all the procedures, noted complications including urgent CAB G, , ventricular arrhythmias. Patient's right radial artery was prepped and draped and access with a 6-Portuguese Slender sheath after 1% lidocaine infiltrated in the right radial artery, followed by that, an EBU 3.5 guiding catheter was entered and engaged into left main. First picture was taken and found to have a complete thromb otic occlusion of mid LAD, in-stent area. Followed by that, a Runthrough wire was taken across the lesion and successful balloon angioplasty with a 2.5 x 12 mm balloon was performed x2 with DYAN 3 fl ow with acute thrombus had been seen in the mid area. Followed by that, we took a 3.5 x 38 mm drug- eluting stent placed in the mid LAD, successfully implanted. Followed by that, post-dilatation was performed with a 3.75 x 15 mm noncompliant balloon at 24 atmospheres with good angiographic result. At this time, we had taken complete left pictures with good angiographic result. Followed by that, the guide was switched with the right guide, a 7.5 guide, engaged into RCA and RCA pictures were ta maxime. Followed by that, the pigtail was entered into LV and LV gram was performed. LV ejection frac tion was found to be 30% with severe hypokinesis of mid apical anterolateral as well as the apex. Procedure was finished without any complications. All the wires and catheters were removed over the wire. COMPLICATIONS: None. CONTRAST: 100 mL. LEFT VENTRICULAR FINDINGS: LVEDP is 15 mmHg, LVEF is 30%. CORONARY FINDINGS: 1. Left main: Mild diffuse disease. 2. LAD: Proximal mild diffuse disease, mid segment has 100% thrombotic occlusion of in-stent throm bosis, successful stent placement into in-stent thrombosis 3.5 x 38 mm with mild diffuse disease int o the distal LAD. 3. Left circumflex: Mild diffuse disease throughout the proximal and mid segment. Distal circumfl ex has 40% stenosis. 4. Right coronary artery: Large RCA dominant with mild diffuse disease. CONCLUSIONS: 1. Acute thrombotic in-stent thrombosis of mid left anterior descending. 2. Successful complex intervention of an acute myocardial infarction with mid left anterior descend ing in-stent thrombosis with 3.5 x 38 mm drug-eluting stent. 3. Distal circumflex with 40% stenosis. RECOMMENDATIONS: 1. Aspirin and Plavix for at least 1 year. 2. ICU admit. 3. Two-D echocardiography, discharge home tomorrow. Dictated By: ABI MENDOZA/BRANDON Conf#: [id number] DID#: [id number]
--- NOTE | 2016-12-18 12:04 | CONS ---
Date/Time of Note Date/Time of Note DATE: 12/18/16 TIME: 11:28 Assessment/Plan Assessment/Plan Additional Assessment/Plan This is a 66 year old male patient in withc/o chest pain and had cath with STEMI. He is noted to have hypernatremia, mild metabolic acidosis and Elevated Cr 1.71. pt is sp Cardiac cath and sp contrast exposure, and renal was consulted for - ASHLEY, Hypernatremia, Metabolic acidosis, and to prevent contrast induced nephropathy. 1. Hypomagnesium- Mag replaced today 2. acute STEM - no chest pain at present 3. Leukocytosis- trending down today. 4. acute kidney injury due to Prerenal azotemia + STEMI - BUN/Cr = 19/1.02 today 5. Mild metabolic acidosis- resolved 6. Hypernatremia due to dehydration/Prerenal azotemia - resolved Plan : - S/p Cardiac cath with s/p complex PCI of mid LAD stent thrombosis with 3.5x38mm MAYA synergey. - Continue iVF NS - Pt cr expectinv to improve with IVF hydration - BP stable - Continue current medicaitons, - Ok to resume ACEI/ARB- from renal point of view - will follow up -Eldon Buchanan/staff Consultation Date/Type/Reason Admit Date/Time Dec 17, 2016 at 17:41 Initial Consult Date 12/17/16 Type of Consultation: NEPHROLOGY Referring Provider: TRENTON SALGADO MD 24 HR Interval Summary Free Text/Dictation Resting in bed, seems comfortable, denies any chest pain. bun/Cr wnl Anticipate discharge at home today. dw staff. Constitutional: improved Detailed Summary Respiratory: no complaints Cardiovascular: no complaints Gastrointestinal: no complaints Genitourinary: no complaints Musculoskeletal: no complaints Neurologic: no complaints Exam/Review of Systems Vital Signs Vitals Vital Signs Date Time Temp Pulse Resp B/P Pulse Ox O2 Delivery O2 Flow Rate FiO2 12/18/16 10:00 66 17 103/62 96 Room Air 12/18/16 08:00 2.0 12/18/16 08:00 98.1 Intake and Output 12/17/16 12/17/16 12/18/16 15:00 23:00 07:00 Intake Total 935 ml 525 ml Output Total 355 ml 325 ml Balance 580 ml 200 ml Exam Constitutional: alert, oriented, well developed Respiratory: clear to auscultation, normal air movement Cardiovascular: nl pulses, other (s1s2) Gastrointestinal: non-tender, soft Musculoskeletal: nl extremities to inspection Extremities: normal pulses Neurological: nl mental status, nl speech Results Result Diagram: 12/18/162 12/18/16 0432 Results 24 hrs Laboratory Tests Test 12/17/16 15:20 12/17/16 21:00 12/18/16 04:32 White Blood Count 14.9 H 14.3 H Red Blood Count 5.32 4.47 L Hemoglobin 15.3 12.6 L Hematocrit 44.6 38.6 L Mean Corpuscular Volume 83.8 86.4 Mean Corpuscular Hemoglobin 28.8 L 28.2 L Mean Corpuscular Hemoglobin Concent 34.3 32.6 Red Cell Distribution Width 13.3 13.7 Platelet Count 262 200 # Mean Platelet Volume 9.6 9.9 Neutrophils % 67.8 79.2 H Lymphocytes % 21.3 10.3 L Monocytes % 9.6 9.7 Eosinophils % 0.5 0.2 Basophils % 0.2 0.1 Nucleated Red Blood Cells % 0.0 0.0 Neutrophils # 10.1 H 11.3 H Lymphocytes # 3.2 H 1.5 Monocytes # 1.4 H 1.4 H Eosinophils # 0.1 0.0 Basophils # 0.0 0.0 Nucleated Red Blood Cells # 0.0 0.0 Prothrombin Time 12.1 L Prothrombin Time Ratio 0.9 INR International Normalized Ratio 0.90 Activated Partial Thromboplast Time 26.1 Sodium Level 147 H 142 Potassium Level 3.5 4.4 Chloride Level 112 H 111 H Carbon Dioxide Level 20 L 22 Anion Gap 19 H 13 Blood Urea Nitrogen 19 19 Creatinine 1.79 H 1.02 Glucose Level 115 104 Calcium Level 10.6 H 9.4 Total Bilirubin 0.6 Direct Bilirubin 0.00 Indirect Bilirubin 0.6 Aspartate Amino Transf (AST/SGOT) 22 Alanine Aminotransferase (ALT/SGPT) 44 Alkaline Phosphatase 82 Troponin I < 0.012 14.800 *H Total Protein 8.0 Albumin 5.0 H Globulin 3.00 Albumin/Globulin Ratio 1.66 Creatine Kinase 757 H Creatine Kinase Index 6.4 Creatinine Kinase MB (Mass) 48.10 H Free Thyroxine 0.91 Hemoglobin A1c 5.4 Phosphorus Level 4.2 Magnesium Level 1.6 L Triglycerides Level 223 H Cholesterol Level 131 LDL Cholesterol, Calculated 60 HDL Cholesterol 26 L Cholesterol/HDL Ratio 5.0 Thyroid Stimulating Hormone (TSH) 0.680 Medications Medications Current Medications Ondansetron HCl (Zofran Inj) 4 mg Q6H PRN IV NAUSEA AND/OR VOMITING Last administered on 12/17/16 21:41; Admin Dose 4 MG; Start 12/17/16 at 19:00 Acetaminophen (Tylenol Tab) 650 mg Q6H PRN PO PAIN LEVEL 1-3 OR FEVER; Start 12/17/16 at 19:00 Acetaminophen/ Hydrocodone Bitart (Scott (5/325)) 1 tab Q6H PRN PO MODERATE PAIN LEVEL 4-6 Last administered on 12/17/16 20:27; Admin Dose 1 TAB; Start 12/17/16 at 19:00 Morphine Sulfate (morphine) 2 mg Q4H PRN IV SEVERE PAIN LEVEL 7-10 Last administered on 12/17/16 21:42; Admin Dose 2 MG; Start 12/17/16 at 19:00 Docusate Sodium (Colace) 100 mg Q12H PRN PO CONSTIPATION; Start 12/17/16 at 19 :00 Magnesium Hydroxide (Milk Of Mag) 30 ml DAILY PRN PO CONSTIPATION; Start 12/17 at 19:00 Sodium Biphosphate/ Sodium Phosphate (Fleet Enema) 133 ml DAILY PRN [place] CONSTIPATION; Start 12/17/16 at 19:00 Famotidine (Pepcid) 20 mg DAILY PO Last administered on 12/18/16 08:16; Admin Dose 20 MG; Start 12/17/16 at 19:00 Lorazepam (Ativan) 0.5 mg Q6H PRN IV ANXIETY; Start 12/17/16 at 19:00 Hydralazine HCl (Apresoline) 10 mg Q6H PRN IV SBP GREATER THAN 180; Start at 19:00 Nitroglycerin (Nitroglycerin (Sl Tab) 0.4 Mg) 1 tab Q5M PRN SL ANGINA Last administered on 12/17/16 21:30; Admin Dose 1 TAB; Start 12/17/16 at 19:00 Clopidogrel Bisulfate (plaVIX) 75 mg DAILY PO Last administered on 12/18/16 08:16; Admin Dose 75 MG; Start 12/18/16 at 09:00 Aspirin (Aspirin) 81 mg DAILY PO Last administered on 12/18/16 08:16; Admin Dose 81 MG; Start 12/18/16 at 09:00 Atorvastatin Calcium (Lipitor) 80 mg DAILY@21 PO Last administered on 20:08; Admin Dose 80 MG; Start 12/17/16 at 21:00 Carvedilol (Coreg) 6.25 mg BID PO Last administered on 12/18/16 08:16; Admin Dose 6.25 MG; Start 12/17/16 at 21:00 Lisinopril (Zestril) 2.5 mg DAILY PO Last administered on 12/18/16 08:17; Admin Dose 2.5 MG; Start 12/17/16 at 19:45 WILL FORBES Dec 18, 2016 11:50
--- NOTE | 2016-12-18 12:52 | PDOCDIS ---
Discharge Instructions CONDITION Patient Condition: Stable HOME CARE INSTRUCTIONS: Special Diet: Low fat, Low cholesterol ACTIVITY: Activity Restrictions: Slowly Increase Activity FOLLOW UP/APPOINTMENTS Follow-up Plan Please take your medications as prescribed, please follow-up with her regular doctor in the clinic in the next 1 week. STEFAN GARCIA Dec 18, 2016 12:52
[2016-12-18] MEDS ORDERED: FAMO20TA18 PO (12:55)
[2016-12-18] MEDS ORDERED: ATOR80TA75 PO (12:55)
[2016-12-18] MEDS ORDERED: ASPI81TA3 PO (12:55)
[2016-12-18] MEDS ORDERED: CLOP75TA28 PO (12:55)
[2016-12-18] MEDS ORDERED: LISI-313 PO (12:55)
[2016-12-18] MEDS ORDERED: NIT4 SL (12:55)
[2016-12-18] MEDS ORDERED: CARV6.2579 PO (12:55)
[2016-12-18] MEDS ORDERED: UDMOM PO (12:55)
--- NOTE | 2016-12-18 14:05 | DS ---
DATE OF ADMISSION: 12/17/2016 DATE OF DISCHARGE: 12/18/2016 HISTORY OF PRESENT ILLNESS: This is a 66-year-old male, originally admitted on 12/17/2016 and being discharged home later this evening on 12/18/2016. The patient came in with chest pain symptoms. He was diagnosed with ST-elevation CA. He has a prior history of myocardial infarction with stent placement in the past so he was taken to the labor custodian after presenting to the ER. HOSPITAL COURSE: He was found with mild diffuse disease in the left main artery, but in the LAD, there was proximal mild diffuse disease, but his mid segment had 100 percent mid thrombotic occlusion of in-stent thrombosis and there was successful stent placement to this stent thrombosis. Patient tolerated the procedure well. Afterward, he stayed in the intensive care unit for 24 hours and he was monitored. He had some mild chest pain after the procedure but otherwise was able to ambulate and tolerate a p.o. diet. He had some mild renal insufficiency which resolved within the first 24 hours as well after getting IV fluids. He was placed on statin medications and beta dinora and an LUIS CARLOS inhibitor as well. After getting clearance from cardiology, the patient to be discharged home today in improved condition. DISCHARGE MEDICATIONS: 1. Aspirin 81 mg daily. 2. Atorvastatin 80 mg daily. 3. Coreg 6.25 mg b.i.d. 4. Plavix 75 mg daily. 5. Famotidine 20 mg daily 6. Lisinopril 2.5 mg daily. 7. Milk of magnesia daily p.r.n. 8. Nitroglycerin 0.4 mg sublingual every 5 minutes p.r.n. 9. Fenofibrate 160 mg daily. FOLLOWUP: He will need to follow with his regular doctor in clinic in next one to two weeks. FINAL DIAGNOSES: 1. Chest pain with ST-elevation myocardial infarction, status post stent placement to left anterior descending in-thrombus stent occlusion within new stent placement and angioplasty. 2. Smoker. Counseled on cessation. 3. History of hypertension. 4. High cholesterol. 5. History of prior myocardial infarction with prior stent placement in the past. 6. Prior history of appendectomy. 7. Time spent preparing discharge for the patient: 45 minutes. Dictated By: Charbel Pimentel MD /kirsten/lisa /Document#: [id number] MTDD
--- NOTE | 2016-12-19 15:03 | RADRPT ---
Vent Rate: 64 bpm RR Interval: 0 msec NM Interval: 214 msec QRS Duration: 138 msec QT Interval: 428 msec QTC Interval: 441 msec P-R-T [place]: 71 - 48 - 52 degrees Sinus rhythm with 1st degree AV block Right bundle branch block Anteroseptal infarct , age undetermined Abnormal ECG Electronically Signed By: Mahendra Mack [id number]
== END 2016-12-18 18:20 | disposition home or self-care (01) | DRG 246 ==
LOC: E/R 15:16 → ICU 17:41 → EDBD 17:41
PROVIDERS: ADMIT Internal Medicine; ATTEND Internal Medicine
PROC: 027034Z Dilation of Coronary Artery, One Artery with Drug-eluting Intraluminal Device, Percutaneous Approach (ICD-10-PCS; principal; 2016-12-17 16:00)
PROC: 4A023N7 Measurement of Cardiac Sampling and Pressure, Left Heart, Percutaneous Approach (ICD-10-PCS; 2016-12-17 16:00)
DX: T82.855A Stenosis of coronary artery stent, initial encounter (principal); I21.02 ST elevation (STEMI) myocardial infarction involving left anterior descending coronary artery; N17.9 Acute kidney failure, unspecified; E87.0 Hyperosmolality and hypernatremia; E83.42 Hypomagnesemia; E86.0 Dehydration; I10 Essential (primary) hypertension; E78.00 Pure hypercholesterolemia, unspecified; I25.2 Old myocardial infarction
CPT/HCPCS: 71010; 80048; 80053; 80061; 82550; 82553; 83036; 83735; 84100; 84439; 84443; 84484; 85025; 85610; 85730; 87081; 93005; 93306; 93458; C1725; C1874; C1887; C9600; J1644; J2250; J2270; J2405; J3010; J3475; J7030; Q9967

== ENCOUNTER → 2017-03-22 | Outpatient (CLI) | END | disposition home or self-care (01) ==